=== PATIENT | female | born 1990 | race Caucasian/White ===

== ENCOUNTER 2019-03-05 06:57 | Emergency (ER) | payer OTHER ==
[2019-03-05] MEDS ORDERED: SODIUM CHLORIDE 1,000 ML IV STA (07:23)
[2019-03-05] MEDS ORDERED: METOCLOPRAMIDE HCL INJECTION 10 MG/2 ML VIAL IVPB ONE (07:23)
[2019-03-05] MEDS ORDERED: KETOROLAC TROMETHAMINE 30 MG/1 ML VIAL IVPUSH ONE (07:23)
[2019-03-05 07:27] VITALS: BP 105/67; PULSE 85; TEMP 97.9; BMI 21.7
[2019-03-05] MEDS ORDERED: METOCLOPRAMIDE HCL INJECTION 10 MG/2 ML VIAL ONE (07:28)
[2019-03-05] MEDS ORDERED: KETOROLAC TROMETHAMINE 30 MG/1 ML VIAL ONE (07:28)
--- NOTE | 2019-03-05 08:20 | PDOC ---
History of Present Illness - General Chief Complaint: Headache Stated Complaint: MIGRAINE,DIZZINESS Time Seen by Provider: 03/05/19 07:22 History Source: Patient Exam Limitations: No Limitations - History of Present Illness Initial Comments: 03/05/19 07:34 28-year-old female with history of migraines presents to ED with throbbing pressure to the temporal region since last night. Patient works upstairs as a registered nurse and states tried to get through the night with just Excedrin Migraine but as her symptoms progressed she decided come to the ER. Patient denies different presentation from previous episodes and states normally does have nausea which she complaints of now. Patient denies visual changes, dizziness, fever, chills, neck pain, or difficulty swallowing. Timing/Duration: reports: constant Severity: Yes: moderate Associated Symptoms: reports: nausea/vomiting. denies: vision changes Past History - Past Medical History Allergies/Adverse Reactions: Allergies Allergy/AdvReac Type Severity Reaction Status Date / Time Penicillins Allergy Verified 03/05/19 07:11 Asthma: Yes COPD: No - Immunization History Immunization Up to Date: Yes - Suicide/Smoking/Psychosocial Hx Smoking History: Never smoked Hx Alcohol Use: No Drug/Substance Use Hx: No Patient Lives Alone: No Review of Systems - Review of Systems Able to Perform ROS?: Yes Constitutional: No: Symptoms Reported HEENTM: No: Symptoms Reported Respiratory: No: Symptoms reported Cardiac (ROS): No: Symptoms Reported ABD/GI: Yes: Nausea : No: Symptoms Reported Musculoskeletal: No: Symptoms Reported Integumentary: No: Symptoms Reported Neurological: Yes: Headache. No: Weakness, Dizziness Hematologic/Lymphatic: No: Symptoms Reported *Physical Exam - Vital Signs Last Vital Signs Temp Pulse Resp BP Pulse Ox 97.9 F 85 18 105/67 100 03/05/19 07:13 03/05/19 07:13 03/05/19 07:13 03/05/19 07:13 03/05/19 07:13 - Physical Exam General Appearance: Yes: Nourished, Appropriately Dressed. No: Apparent Distress HEENT: positive: AL, Pharynx Normal. negative: Pale Conjunctivae Neck: positive: Normal Thyroid Respiratory/Chest: positive: Lungs Clear, Normal Breath Sounds. negative: Respiratory Distress, Accessory Muscle Use Cardiovascular: positive: Regular Rhythm, Regular Rate. negative: Murmur Extremity: positive: Normal Inspection Integumentary: positive: Normal Color, Warm, Moist Neurologic: positive: Motor Strength 5/5 (ambulatory) ED Treatment Course - Medications Given in the ED: ED Medications Discontinued Medications Generic Name Dose Route Start Last Admin Trade Name Bakari PRN Reason Stop Dose Admin Ketorolac Tromethamine 30 mg 03/05/19 07:23 03/05/19 07:35 Toradol Injection - IVPUSH 03/05/19 07:24 30 mg ONCE ONE Administration Metoclopramide HCl 10 mg 03/05/19 07:23 03/05/19 07:35 Reglan Injection - IVPB 03/05/19 07:24 10 mg ONCE ONE Administration Medical Decision Making - Medical Decision Making 03/05/19 08:00 Chief complaint: Frontal throbbing pressure since last night unrelieved with Excedrin Migraine which she normally takes for headache patient denies different presentation from previous episode no other complaints except for mild nausea Exam: Vital signs stable and normal physical exam Plan: IV fluids Toradol and Reglan ordered 03/05/19 08:20 Patient has no complaints of nausea now and states headache has resolved. Patient will be discharged home with recommendations to purchase over-the- counter Motrin gelcaps along with rapid release Tylenol to using combination of Excedrin Migraine and take at onset of headache *DC/Admit/Observation/Transfer Diagnosis at time of Disposition: Headache - Discharge Dispostion Disposition: HOME Condition at time of disposition: Improved - Referrals - Patient Instructions Printed Discharge Instructions: DI for Headache Additional Instructions: I recommend to purchase [id number] Motrin gelcaps along with rapid release Tylenol to use in combination of Excedrin Migraine and take at onset of headache. - Post Discharge Activity
== END 2019-03-05 08:27 | disposition home or self-care (01) ==
LOC: JER 06:57
PROC: 3E033GC Introduction of Other Therapeutic Substance into Peripheral Vein, Percutaneous Approach (ICD-10-PCS; principal; 2019-03-05)
PROC: 3E0333Z Introduction of Anti-inflammatory into Peripheral Vein, Percutaneous Approach (ICD-10-PCS; 2019-03-05)
DX: R51 Headache (principal)
CPT/HCPCS: 99282-25; J7030

== ENCOUNTER 2021-11-03 08:07 | Emergency (ER) | payer BC, OTHER ==
[2021-11-03 08:16] VITALS: TEMP 37.7; BMI 21.6
[2021-11-03] MEDS ORDERED: ONDANSETRON 4 MG/2 ML VIAL IVPUSH ONE (08:32)
[2021-11-03] MEDS ORDERED: MECLIZINE HCL 25 MG TABLET (FP) PO ONE (08:32)
[2021-11-03] MEDS ORDERED: SODIUM CHLORIDE 0.9% 500 ML INFUS.BAG IV ONE (08:32)
[2021-11-03] MEDS ORDERED: ACETAMINOPHEN 1000 MG/100 ML BAG IVPB ONE (08:33)
[2021-11-03] MEDS ORDERED: OFLOXACIN 0.3% OTIC SOLUTION 5 ML BOTTLE AS ONE (08:39)
[2021-11-03] MEDS ORDERED: ACETAMINOPHEN INJECTION 100 ML IVPB ONE (08:48)
[2021-11-03] MEDS ORDERED: ONDANSETRON 4 MG/2 ML VIAL ONE (08:48)
[2021-11-03] MEDS ORDERED: MECLIZINE HCL 25 MG TABLET (FP) ONE (08:48)
[2021-11-03 09:13] LABS: THROAT:GRP A STREP NOT DETECTED (NOTDETECTED)
[2021-11-03 10:26] VITALS: BP 102/70; PULSE 85
[2021-11-04 18:07] LABS: SARS-CoV-2 NAA Not Detected (Not Detected)
== END 2021-11-03 10:26 | disposition home or self-care (01) ==
LOC: JERFT 08:07
PROC: 3E033GC Introduction of Other Therapeutic Substance into Peripheral Vein, Percutaneous Approach (ICD-10-PCS; principal; 2021-11-03)
DX: R42 Dizziness and giddiness (principal); H60.92 Unspecified otitis externa, left ear
CPT/HCPCS: 84703; 87651; 99284-25; C9803-CS; U0003; U0005

== ENCOUNTER 2021-11-08 18:01 | Emergency (ER) | payer BC ==
[2021-11-08 18:10] VITALS: BP 112/67; PULSE 114; TEMP 98; BMI 21.6
== END 2021-11-08 19:59 | disposition left against medical advice (07) ==
LOC: JER 18:01
DX: R42 Dizziness and giddiness (principal)
CPT/HCPCS: 99281-25